=== PATIENT | female | born 1990 | race Caucasian/White ===

== ENCOUNTER 2016-07-07 14:56 | Inpatient (IN) | payer OTHER ==
[~2016-07-07] VITALS: Ht 175.3 cm; Wt 85.0 kg
[2016-07-20] VITALS (27 sets, daily range): BP systolic 101–136; BP diastolic 58–91; PULSE 75–100; TEMP 98.6
[2016-07-20] MEDS ORDERED: PRENATAL1 TA7 PO (15:25)
[2016-07-20 16:04] LABS: BASO # 0.1 (0.0-0.2); BASO % 0.3 % (0.0-2.0); EOS # 0.1 (0.0-0.7); EOS % 0.5 % (0-4.0); GRAN # 11.8 (1.4-6.5); GRAN % 76.2 % (42.2-75.2); HEMATOCRIT 37.5 % (37.0-47.0); HEMOGLOBIN 12.4 g/dl (12.5-16.0); LYMPH # 2.5 (1.2-3.4); LYMPH % 16.1 % (20.0-51.0); MEAN CELL VOLUME 88 fl (80.0-100.0); MEAN CORPUSCULAR HEMOGLOBIN 29 pg (27.0-31.0); MEAN CORPUSCULAR HGB CONC 33 g/dl (33.0-37.0); MEAN PLATELET VOLUME 12.1 fl (7.4-10.4); MONO # 0.9 (0.1-0.6); MONO % 6.1 % (1.7-9.3); PLATELET COUNT 161 K/mm3 (130-400); RED BLOOD COUNT 4.26 M/mm3 (4.10-5.30); REDCELL DISTRIBUTION WIDTH-CV 14.2 % (11.5-14.5); WHITE BLOOD COUNT 15.5 K/mm3 (4.8-10.8)
[2016-07-21] VITALS: BP 109/60; PULSE 80
[2016-07-21 01:00] VITALS: BP 117/74; PULSE 89
[2016-07-21 07:22] VITALS: BP 108/56; PULSE 74
[2016-07-21 08:26] LABS: HEMATOCRIT 34.5 % (37.0-47.0); HEMOGLOBIN 11.6 g/dl (12.5-16.0)
[2016-07-21 13:33] VITALS: BP 117/64; PULSE 112
[2016-07-21 21:30] VITALS: BP 117/67; PULSE 76; TEMP 98
[2016-07-22] MEDS ORDERED: IBU600 MG PO (08:30)
[2016-07-22 09:53] VITALS: BP 110/69; PULSE 74
== END 2016-07-22 10:35 | disposition home or self-care (01) | DRG 775 ==
LOC: OB 07-20 14:32 → LDR 07-20 14:32 → OB 07-21 01:00 → EDSTATUS 07-23 14:24 → LDR 07-23 14:26 → LDRO 07-23 14:56
PROVIDERS: Obstetrics & Gynecology
PROC: 10E0XZZ Delivery of Products of Conception, External Approach (ICD-10-PCS; principal; 2016-07-20)
PROC: 0UQM0ZZ Repair Vulva, Open Approach (ICD-10-PCS; 2016-07-20)
PROC: 3E033VJ Introduction of Other Hormone into Peripheral Vein, Percutaneous Approach (ICD-10-PCS; 2016-07-20)
DX: O13.3 Gestational [pregnancy-induced] hypertension without significant proteinuria, third trimester (principal); O70.0 First degree perineal laceration during delivery; Z3A.39 39 weeks gestation of pregnancy; Z37.0 Single live birth
CPT/HCPCS: J2590; J7120